=== PATIENT | female | born 1940 | race Caucasian/White ===

== ENCOUNTER 2016-07-01 18:54 | Inpatient (IN) | payer OTHER ==
[~2016-07-01] VITALS: Ht 160 cm; Wt 66.2 kg
--- NOTE | 2016-07-01 19:37 | NUR ---
LABS DRAWN AND SENT, SANTOSH CESPEDES,SST
[2016-07-01 19:43] LABS: ABSOLUTE BASOPHIL COUNT 0 /CUMM (0.0-0.2); ABSOLUTE EOSINOPHIL COUNT 0 /CUMM (0.0-0.7); ABSOLUTE LYMPH COUNT 1.5 /CUMM (1.2-3.4); ABSOLUTE MONOCYTE COUNT 0.3 /CUMM (0.10-0.60); BASOPHIL % 0.1 % (0.0-2.0); EOSINOPHIL % 0.1 % (0-5); HEMATOCRIT 48.3 % (37-47); MEAN CORPUSCULAR HGB 27.8 PG (27.0-31.0); MEAN CORPUSCULAR HGB CONC 32.7 G/DL (33.0-37.0); MEAN CORPUSCULAR VOLUME 85.2 FL (81.0-99.0); MEAN PLATELET VOLUME 9.1 FL (7.4-10.4); PLATELET COUNT 298 /CUMM (130-400); RED BLOOD CELL CT 5.67 /CUMM (4.20-5.40); WHITE BLOOD CELL COUNT 10.9 /CUMM (4.8-10.8)
--- NOTE | 2016-07-01 19:58 | NUR ---
PT TO ED C/O +N/V AND LOW ABDOMINAL PAIN FOR 3 DAYS. WENT TO WALK IN THIS AM, "NO UTI" LAST BM WAS YESTERDAY AND WAS NORMAL. "I CAN'T KEEP ANYTHING DOWN"
--- NOTE | 2016-07-01 21:43 | NUR ---
PT AMBULATORY TO [facility] RM 3 C/C NOTED IN TRIAGE NOTE PT REPORTS 3 DAYS OF LOW ABD PAIN WITH ASSOCIATED N/V. LBM YESTERDAY, WAS NORMAL. REPORTS DECREASED PO LIQUID/SOLID INTAKE AND DECREASED URINARY OUTPUT. HAD URINE SPECIMEN TESTED AT CLINIC [facility] TODAY, THINKS IT WAS NEGATIVE. HAD BLOOD WORK SENT FROM TRIAGE. AWAITING PROVIDER EVAL.
--- NOTE | 2016-07-01 21:49 | NUR ---
EKG ORDERED PER PROTOCOL
--- NOTE | 2016-07-01 21:54 | NUR ---
ALEXSANDER MIRANDA INTO EVALUATE
--- NOTE | 2016-07-01 21:55 | ED GI/GU/ABDOMINAL COMPLAINT ---
History of Present Illness General Chief Complaint: Abdominal Pain/Flank Pain Stated Complaint: ABD PAIN, NAUSEA, VOMITING X 3 DAYS PER PT Source: patient, family Exam Limitations: no limitations Vital Signs & Intake/Output Vital Signs & Intake/Output Vital Signs Date Time Temp Pulse Resp B/P Pulse O2 O2 Flow FiO2 Ox Delivery Rate 07/01 2337 72 16 149/69 97 07/01 2243 99.0 73 20 190/93 98 Room Air 07/01 2144 Room Air Room Air 07/01 1954 98.6 82 18 160/86 Room Air ED Intake and Output 07/02 0000 07/01 1200 Intake Total Output Total Balance Patient 146 lb Weight Allergies Coded Allergies: No Known Drug Allergies (NKDA 07/01/16) Reconcile Medications No Known Home Medications Triage Note: PT TO ED C/O +N/V AND LOW ABDOMINAL PAIN FOR 3 DAYS. WENT TO WALK IN THIS AM, "NO UTI" LAST BM WAS YESTERDAY AND WAS NORMAL. "I CAN'T KEEP ANYTHING DOWN" Triage Nurses Notes Reviewed? yes ? n Is pt currently ? No Onset: Abrupt Duration: day(s): (3), constant, continues in ED Timing: recent history Quality/Severity: moderate, sharpness, severe Location: generalized abdomen Radiation: no radiation Activities at Onset: none No Modifying Factors: none HPI: 75-year-old female comes into emergency room for evaluation of abdominal pain has been going on for the past 3 days. Patient reports that she has associated vomiting. She had a normal bowel movement yesterday but has not had a bowel movement today. She thinks she is passing some intermitting gas. Denies any blood in her stool. Denies any abdominal surgeries. She has no past medical history. Nothing seems to make the symptoms better. Drinking any fluids makes her symptoms worse. Patient reports that any type of liquid she was drinking this afternoon came back up right away. (MOIRA SOTELO) Past History Travel History Traveled to [place] past 21 day No Medical History Any Pertinent Medical History? see below for history Neurological: NONE EENT: NONE Cardiovascular: NONE Respiratory: NONE Gastrointestinal: NONE Hepatic: NONE Renal: NONE Musculoskeletal: NONE Psychiatric: NONE Endocrine: NONE Surgical History Surgical History: non-contributory Psychosocial History What is your primary language Uzbek Tobacco Use: Never used ETOH Use: denies use Illicit Drug Use: denies illicit drug use Family History Hx Contributory? No (MOIRA SOTELO) Review of Systems Review of Systems Constitutional: Reports: no symptoms. EENTM: Reports: no symptoms. Respiratory: Reports: no symptoms. Cardiovascular: Reports: no symptoms. GI: Reports: see HPI. Genitourinary: Reports: no symptoms. Musculoskeletal: Reports: no symptoms. Skin: Reports: no symptoms. Neurological/Psychological: Reports: no symptoms. Hematologic/Endocrine: Reports: no symptoms. Immunologic/Allergic: Reports: no symptoms. All Other Systems: Reviewed and Negative (MOIRA SOTELO) Physical Exam Physical Exam General Appearance: well developed/nourished, no apparent distress, alert Head: atraumatic, normal appearance Eyes: Bilateral: normal appearance, EOMI. Ears, Nose, Throat, Mouth: hearing grossly normal, moist mucous membrane Neck: normal inspection, full range of motion Respiratory: normal breath sounds, no respiratory distress Cardiovascular: regular rate/rhythm Gastrointestinal: soft, tenderness Back: normal inspection Extremities: normal range of motion Neurologic/Psych: awake, alert, oriented x 3, normal gait, normal mood/affect Skin: intact, normal color Core Measures ACS in differential dx? Yes Severe Sepsis Present: No Septic Shock Present: No (MOIRA SOTELO) Progress Differential Diagnosis: appendicitis, biliary colic, bowel obstruction, cholecystitis, diverticulitis, ectopic , esophageal varices, gastritis, hepatitis, hernia, ischemic bowel, kidney stone, ovarian cyst, ovarian torsion, pancreatitis, PUD/GERD, perforated viscous, SBO, threatened AB, UTI/pyelo Plan of Care: Orders Procedure Date/time Status Nothing by Mouth 07/02 B Active [id number] VIEWS 07/02 0700 Active CBC WITHOUT DIFFERENTIAL 07/02 0600 Active BASIC ELECTROLYTES PLUS BUN&CR 07/02 0500 Active Pathway - chart 07/02 0035 Active Patient Data 07/02 0035 Active Code Status 07/02 0035 Active PARTIAL THROMBOPLASTIN TIME 07/02 0019 Active PROTHROMBIN TIME 07/[address] in observation 07/02 UNK Active VTE Mechanical Prophylaxis 07/02 UNK Active Vital Signs 07/02 UNK Active Intake & Output 07/02 UNK Active Activity/Ambulation 07/02 UNK Active Add-on Test (ER Only) 07/01 2154 Active EKG 07/01 2148 Active TROPONIN LEVEL 07/02 1931 Complete LIPASE 07/01 1905 Complete COMPREHENSIVE METABOLIC PANEL 07/01 1905 Complete CBC WITHOUT DIFFERENTIAL 07/01 1905 Complete AMYLASE 07/01 1905 Complete Current Medications Sig/Elizabeth Start time Last Medication Dose Stop Time Status Admin Pantoprazole Sodium 40 MG DAILY 07/02 1000 UNVr (Protonix) Heparin Sodium 5,000 UNIT Q8 07/02 0600 UNVr (Porcine) Morphine Sulfate 2 MG Q3P PRN 07/02 44 UNVr (Morphine) Ondansetron HCl 4 MG Q6P PRN 07/02 44 UNVr (Zofran) Laboratory Tests 07/01/161931: Anion Gap 13, Estimated GFR > 60, BUN/Creatinine Ratio 25.0, Glucose 105 H, Calcium 10.3 H, Total Bilirubin 1.6 H, AST 31, ALT 23, Alkaline Phosphatase 64 , Troponin I < 0.01, Total Protein 8.1, Albumin 4.5, Globulin 3.6, Albumin/ Globulin Ratio 1.3, Amylase 44, Lipase 36, CBC w Diff NO MAN DIFF REQ, RBC 5.67 H, MCV 85.2, MCH 27.8, RDW 15.0 H, MPV 9.1, Gran % 83.0 H, Lymphocytes % 14.2 L, Monocytes % 2.6, Eosinophils % 0.1, Basophils % 0.1, Absolute Granulocytes 9.0 H, Absolute Lymphocytes 1.5, Absolute Monocytes 0.3, Absolute Eosinophils 0 , Absolute Basophils 0, PUBS MCHC 32.7 L Diagnostic Imaging: Viewed by Me: CT Scan. Discussed w/RAD: CT Scan. Radiology Impression: SERVICE DATE: 07/01/16 EXAM TYPE: CAT - CT ABD & PELVIS W IV CONTRAST EXAMINATION: CT ABDOMEN AND PELVIS WITH CONTRAST CLINICAL INFORMATION: Abdominal pain and vomiting. COMPARISON: None. TECHNIQUE: Contiguous axial thin section helical images of the abdomen and pelvis were performed following the administration of 85 mL of intravenous Optiray 320. The data set was reformatted in the coronal and sagittal planes and reviewed on an independent workstation. DLP: 312 mGy-cm. FINDINGS: The visualized lung bases are clear. The visualized portions of the heart are unremarkable. The liver is of normal size and attenuation without focal lesions nor intrahepatic biliary ductal dilation. A normal gallbladder is identified. There is no wall thickening or discernible pericholecystic fluid. The spleen, pancreas, adrenal glands are unremarkable. Both kidneys are of normal size and attenuation without hydronephrosis or nephrolithiasis. Following the administration of IV contrast, prompt symmetric nephrograms are displayed. There is no abdominal free fluid. There is neither mesenteric nor retroperitoneal lymphadenopathy. There is an acute caliber change within the distal small bowel. Proximal to this, there are numerous dilated loops of small bowel. Distal to the area of luminal narrowing, there are several centimeters of bowel with wall thickening and adjacent free fluid. The distal most small bowel is unremarkable as is the colon. The urinary bladder is unremarkable. There is neither pelvic nor inguinal lymphadenopathy. Bone windows: Neither sclerotic nor lytic bone lesions are identified. There is multilevel disc height loss within the lower lumbar spine. IMPRESSION: Distal small bowel obstruction with acute transition, possibly secondary to an adhesion or stricture. Distal to the area of narrowing, there are several centimeters of small bowel with wall thickening. There is adjacent free fluid. The differential diagnosis for this appearance includes inflammatory processes, infectious processes with are without effusions. DICTATED BY: TASHA FELIZ MD DATE/TIME DICTATED:07/01/162318 ROUTEMAN:AKILAH DATE/TIME TRANSCRIBED:2318 Initial ED EKG: normal intervals, normal p-waves, normal QRS complex, normal sinus rhythm, rate (70), nonspecific ST T wave chg (MOIRA SOTELO) Departure Departure Disposition: STILL A PATIENT Condition: Stable Clinical Impression Primary Impression: Small bowel obstruction Referrals: DEEPTI RIOS MD (PCP/Family) Departure Forms: Customer Survey General Discharge Information Prescriptions: Current Visit Scripts No Known Home Medications Observation Note Spoke With: BEATRIZ ANDERS,ARMANI [place] Physician Advisor Notified: REGINO SHEEHAN DO Place Patient In: Non-ED OBS Care Area Rationale for Observation: My rational for observation is as follows . Small bowel obstruction versus enteritis. Patient will be observed overnight. Surgical consultation. Repeat labs. Possibly NG tube. Patient would do poorly as an outpatient. Patient was seen by surgical team. Armani Martin MD will be consulting surgeon. (MOIRA SOTELO) PA/CONCRETE PRODUCTS MACHINE OPERATOR Co-Sign Statement Statement: ED Attending supervision documentation- x I saw and evaluated the patient. I have also reviewed all the pertinent lab results and diagnostic results. I agree with the findings and the plan of care as documented in the PA's/CONCRETE PRODUCTS MACHINE OPERATOR's documentation. [] I have reviewed the ED Record and agree with the PA's/CONCRETE PRODUCTS MACHINE OPERATOR's documentation. [] Additions or exceptions (if any) to the PAs/CONCRETE PRODUCTS MACHINE OPERATOR's note and plan are summarized below: [] (BELLE ANDERS,EVA)
--- NOTE | 2016-07-01 22:38 | NUR ---
IV ACCESS ESTABLISHED, #20 RFA
--- NOTE | 2016-07-01 22:51 | NUR ---
IVF N/S INFUSION INITIATED AND PATIENT MEDICATED WITH ZOFRAN AND MORPHINE PER ORDERS
--- NOTE | 2016-07-01 22:52 | NUR ---
PT TAKEN TO CT SCAN
--- NOTE | 2016-07-01 23:28 | CT SCAN REPORT ---
EXAMINATION: CT ABDOMEN AND PELVIS WITH CONTRAST CLINICAL INFORMATION: Abdominal pain and vomiting. COMPARISON: None. TECHNIQUE: Contiguous axial thin section helical images of the abdomen and pelvis were performed following the administration of 85 mL of intravenous Optiray 320. The data set was reformatted in the coronal and sagittal planes and reviewed on an independent workstation. DLP: 312 mGy-cm. FINDINGS: The visualized lung bases are clear. The visualized portions of the heart are unremarkable. The liver is of normal size and attenuation without focal lesions nor intrahepatic biliary ductal dilation. A normal gallbladder is identified. There is no wall thickening or discernible pericholecystic fluid. The spleen, pancreas, adrenal glands are unremarkable. Both kidneys are of normal size and attenuation without hydronephrosis or nephrolithiasis. Following the administration of IV contrast, prompt symmetric nephrograms are displayed. There is no abdominal free fluid. There is neither mesenteric nor retroperitoneal lymphadenopathy. There is an acute caliber change within the distal small bowel. Proximal to this, there are numerous dilated loops of small bowel. Distal to the area of luminal narrowing, there are several centimeters of bowel with wall thickening and adjacent free fluid. The distal most small bowel is unremarkable as is the colon. The urinary bladder is unremarkable. There is neither pelvic nor inguinal lymphadenopathy. Bone windows: Neither sclerotic nor lytic bone lesions are identified. There is multilevel disc height loss within the lower lumbar spine. IMPRESSION: Distal small bowel obstruction with acute transition, possibly secondary to an adhesion or stricture. Distal to the area of narrowing, there are several centimeters of small bowel with wall thickening. There is adjacent free fluid. The differential diagnosis for this appearance includes inflammatory processes, infectious processes with are without effusions.
--- NOTE | 2016-07-02 00:29 | Admission Core Measures ---
Admission Lab Results I reviewed the following labs: Laboratory Tests 07/02 1931 Chemistry Sodium (137 - 145 mmol/L) 138 Potassium (3.5 - 5.1 mmol/L) 5.4 H Chloride (98 - 107 mmol/L) 101 Carbon Dioxide (22 - 30 mmol/L) 23 Anion Gap (5 - 16) 13 BUN (7 - 17 mg/dL) 20 H Creatinine (0.5 - 1.0 mg/dL) 0.8 Estimated GFR (>60 ml/min) > 60 BUN/Creatinine Ratio (7 - 25 %) 25.0 Glucose (65 - 99 mg/dL) 105 H Calcium (8.4 - 10.2 mg/dL) 10.3 H Total Bilirubin (0.2 - 1.3 mg/dL) 1.6 H AST (14 - 36 U/L) 31 ALT (9 - 52 U/L) 23 Alkaline Phosphatase (<127 U/L) 64 Troponin I (< 0.11 ng/ml) < 0.01 Total Protein (6.3 - 8.2 g/dL) 8.1 Albumin (3.5 - 5.0 g/dL) 4.5 Globulin (1.9 - 4.2 gm/dL) 3.6 Albumin/Globulin Ratio (1.1 - 2.2 %) 1.3 Amylase (30 - 110 U/L) 44 Lipase (23 - 300 U/L) 36 Hematology CBC w Diff NO MAN DIFF REQ WBC (4.8 - 10.8 /CUMM) 10.9 H RBC (4.20 - 5.40 /CUMM) 5.67 H Hgb (12.0 - 16.0 G/DL) 15.8 Hct (37 - 47 %) 48.3 H MCV (81.0 - 99.0 FL) 85.2 MCH (27.0 - 31.0 PG) 27.8 RDW (11.5 - 14.5 %) 15.0 H Plt Count (130 - 400 /CUMM) 298 MPV (7.4 - 10.4 FL) 9.1 Gran % (42.2 - 75.2 %) 83.0 H Lymphocytes % (20.5 - 51.1 %) 14.2 L Monocytes % (1.7 - 9.3 %) 2.6 Eosinophils % (0 - 5 %) 0.1 Basophils % (0.0 - 2.0 %) 0.1 Absolute Granulocytes (1.4 - 6.5 /CUMM) 9.0 H Absolute Lymphocytes (1.2 - 3.4 /CUMM) 1.5 Absolute Monocytes (0.10 - 0.60 /CUMM) 0.3 Absolute Eosinophils (0.0 - 0.7 /CUMM) 0 Absolute Basophils (0.0 - 0.2 /CUMM) 0 PUBS MCHC (33.0 - 37.0 G/DL) 32.7 L Acute Coronary Syndrome Inclusion Criteria ACS Diagnosis No Inpatient Core Measures LDL Reminder: If No, please order W/I first 24hr of stay Congestive Heart Failure Inclusion Criteria CHF Diagnosis No Cerebrovascular accident Inclusion Criteria CVA/TIA Diagnosis No Inpatient Core Measures Bedside Swallow Eval Reminder: If BSE failed, place ST order Antithrombotic Reminder: Order Antithrombotic Medication by end of day 2 Antithrombotic Reminder: Document Reason Antithrombotic Not ordered by end of day 2 AFIB/Flutter Reminder: If Present, add to problem list AFIB/Flutter Reminder: Order Anticoag Medication for pts with AFIB/Flutter Atherosclerosis Reminder: If Present, add to problem list LDL Reminder: If No, please order W/I first 24hr of stay PT Order Reminder: If No, please order Venous thromboembolism Inpatient Core Measures VTE Risk Factors: Age > 40 [facility] prophylaxis d/t No contraindications No VTE Pharm Prophylaxis d/t No contraindications Inclusion Criteria - Per Current guidelines, there needs to be overlap - treatment for the first 5 days of Warfarin therapy. - Parenteral Anticoagulation (IV or SC) needs to be - given along with Warfarin therapy. VTE Diagnosis No VTE Type NONE VTE Confirmed by (Test) NONE Problem List As ranked by this Provider includes Assessment & Plan 1. Small bowel obstruction HOME MEDS Home Med List No Known Home Medications
--- NOTE | 2016-07-02 00:30 | NUR ---
SURG PA HERE TO EVAL.
--- NOTE | 2016-07-02 01:15 | NUR ---
PT GOING TO ROOM 209-1
--- NOTE | 2016-07-02 01:26 | NUR ---
REPORT CALLED TO GARIMA JAUREGUI
[2016-07-02 02:00] VITALS: BP 142/82
[2016-07-02 06:26] VITALS: BP 138/72
--- NOTE | 2016-07-02 07:24 | PN- General Surgery ---
Subjective Subjective: Patient admitted for 23hr obs overnight for c/o new onset lower abdominal pain with nausea and vomitting. Imaging obtained consistent with partial sbo. Patient has been made npo, no ngt placed for no c/o vomitting overnight. Acknowledging mild belching and hiccups that began this am. Denies flatus. Denies chest pain, shortness of breath and difficulty breathing. Objective Vital Signs and I&Os Vital Signs Date Time Temp Pulse Resp B/P Pulse O2 O2 Flow FiO2 Ox Delivery Rate 07/02 06 98.0 62 20 138/72 98 07/02 0200 98.1 70 20 142/82 97 Room Air 07/01 2337 72 16 149/69 97 07/01 2243 99.0 73 20 190/93 98 Room Air 07/01 2144 Room Air Room Air 07/01 1955 98.6 82 18 160/86 Room Air Intake & Output 07/02 0800 07/02 0000 07/01 1600 07/01 0800 07/01 0000 06/30 1600 Intake Total 1200 Output Total 100 Balance 1100 Intake, IV 1200 Output, Urine 100 Patient 146 lb 146 lb Weight Physical Exam: General: Alert and oriented x3, no acute distress Cardiac: RRR, s1s2 Pulmonary: CTA bilaterally Abdomen: Soft distension, tender with palpation in lower abdomen. Hypoactive bowel sounds auscultated in 4 quadrants. Extremities: Neuro/vascular intact. Bialteral calves soft and non-tender. No peripheral edema Assessment/Plan Assessment/Plan This is a 75 year old female, hospital day 1 for partial sbo. No past medical or surgical history. -Strict npo for now -NGT if vomitting or hiccuping -F/U multiview this am -d/w pono Core Measures/Miscellaneous Venous Thromboembolism VTE Risk Factors: Age > 40 VTE Contraindications: No Contraindications VTE Diagnosis: No VTE Type: NONE VTE Confirmed by (Test): NONE Beta Donald Is Beta Donald a Home Med? No Antibiotics Is Patient on Antibiotics? No
[2016-07-02 08:40] LABS: PT 12.4 SEC (9.4-12.5); PTT 28 SEC (25-37)
[2016-07-02 08:46] LABS: ABSOLUTE BASOPHIL COUNT 0 /CUMM (0.0-0.2); ABSOLUTE EOSINOPHIL COUNT 0 /CUMM (0.0-0.7); ABSOLUTE GRANULOCYTE CT 7.2 /CUMM (1.4-6.5); ABSOLUTE MONOCYTE COUNT 0.7 /CUMM (0.10-0.60); BASOPHIL % 0.5 % (0.0-2.0); EOSINOPHIL % 0.2 % (0-5); GRANULOCYTE % 72.3 % (42.2-75.2); HEMATOCRIT 44.1 % (37-47); MEAN CORPUSCULAR HGB 27.9 PG (27.0-31.0); MEAN CORPUSCULAR HGB CONC 32.7 G/DL (33.0-37.0); MEAN CORPUSCULAR VOLUME 85.1 FL (81.0-99.0); MEAN PLATELET VOLUME 9.5 FL (7.4-10.4); PLATELET COUNT 282 /CUMM (130-400); RBC DISTRIBUTION WIDTH 14.8 % (11.5-14.5); RED BLOOD CELL CT 5.18 /CUMM (4.20-5.40); WHITE BLOOD CELL COUNT 9.9 /CUMM (4.8-10.8)
--- NOTE | 2016-07-02 09:10 | NUR ---
PT OFF FLOOR TO XRAY; A;OX3 RA INDPENDENT
--- NOTE | 2016-07-02 09:46 | Cons- Medical ---
General Information and HPI Consulting Request Date of Consult: 07/02/16 Requested By: BEATRIZ ANDERS,ARMANI Fulton Reason for Consult: Medical comanagement Source of Information: patient, old records Exam Limitations: no limitations History of Present Illness: 75-year-old female with no past medical history except for a remote history of appendectomy when she was 12 years old, otherwise patient is a nonsmoker or drinker presenting with complaints of abdominal discomfort for last 2 days associated with minimal nausea and vomiting. CAT scan suggested distal small bowel obstruction secondary to stricture or adhesions. She is currently admitted under surgical service and being managed conservatively. On evaluation she complains of minimal abdominal discomfort and also reports passing gas this morning. Allergies/Medications Allergies: Coded Allergies: No Known Drug Allergies (NKDA 07/01/16) Home Med List: No Known Home Medications Current Medications: Current Medications Sig/Elizabeth Start time Last Medication Dose Route Stop Time Status Admin Dextrose/Sodium 1,000 ML .Q10H 07/02 0030 AC 07/02 Chloride IV 0045 Heparin Sodium 5,000 UNIT Q8 07/02 0600 AC 07/02 (Porcine) SC 0509 Morphine Sulfate 2 MG Q3P PRN 07/02 0045 AC 07/02 IV 0847 Morphine Sulfate 4 MG ONCE ONE 07/01 2245 DC 07/01 IV 07/01 2246 2250 Morphine Sulfate 0 .STK-MED ONE 07/01 2243 DC .ROUTE Ondansetron HCl 4 MG Q6P PRN 07/02 0045 AC 07/02 IV 0509 Ondansetron HCl 0 .STK-MED ONE 07/01 2242 DC .ROUTE Ondansetron HCl 4 MG ONCE ONE 07/01 2200 DC 07/01 IV 07/01 2201 2250 Pantoprazole Sodium 40 MG DAILY 07/02 1000 AC 07/02 IV 0847 Sodium Chloride 1,000 ML ONCE ONE 07/01 2200 DC 07/01 IV 07/02 0439 2249 Review of Systems Review of Systems Constitutional: Denies: no symptoms, see HPI, chills, diaphoresis, fever, malaise, weakness, unexplained weight loss. Cardiovascular: Denies: no symptoms, see HPI, chest pain, edema, orthopena, palpitations, peripheral edema, syncope. Respiratory: Denies: no symptoms, see HPI, cough, hemoptysis, orthopnea, short of breath, sputum production, stridor, wheezing. GI: Reports: abdominal pain. Genitourinary: Denies: no symptoms, see HPI, discharge, dysuria, frequency, hematuria, hesitation, nocturia, pain, urgency. Past History Travel History Traveled to [place] past 21 day No Medical History Blood Transfusion Hx: No Neurological: NONE EENT: NONE Cardiovascular: NONE Respiratory: NONE Gastrointestinal: NONE Hepatic: NONE Renal: NONE Musculoskeletal: NONE Psychiatric: NONE Endocrine: NONE Cancer(s): NONE MANAGER OF DEVELOPMENT/Reproductive: NONE Surgical History Surgical History: non-contributory Psychosocial History Smoking Status: Never Smoked ETOH Use: denies use Illicit Drug Use: denies illicit drug use Exam & Diagnostic Data Last 24 Hrs of Vital Signs/I&O Vital Signs Date Time Temp Pulse Resp B/P Pulse O2 O2 Flow FiO2 Ox Delivery Rate 07/02 0626 98.0 62 20 138/72 98 07/02 0200 98.1 70 20 142/82 97 Room Air 07/01 2337 72 16 149/69 97 07/01 2243 99.0 73 20 190/93 98 Room Air 07/01 2144 Room Air Room Air 07/01 1955 98.6 82 18 160/86 Room Air Intake & Output 07/02 1600 07/02 0800 07/02 0000 Intake Total 1200 Output Total 100 Balance 1100 Intake, IV 1200 Output, Urine 100 Patient 66.224 kg 66.224 kg Weight Physical Exam General Appearance: well developed/nourished, alert, awake, comfortable Respiratory: normal breath sounds Cardiovascular: regular rate/rhythm Gastrointestinal: soft, abnormal bowel sounds Extremities: no edema Last 24 Hrs of Labs/Tejas: Laboratory Tests 07/02/16 0646: Anion Gap 10, Estimated GFR > 60, BUN/Creatinine Ratio 25.0, PT 12.4, INR 1.18, APTT 28, CBC w Diff NO MAN DIFF REQ, RBC 5.18, MCV 85.1, MCH 27.9, RDW 14.8 H, MPV 9.5, Gran % 72.3, Lymphocytes % 19.9 L, Monocytes % 7.1, Eosinophils % 0.2, Basophils % 0.5, Absolute Granulocytes 7.2 H, Absolute Lymphocytes 2.0, Absolute Monocytes 0.7 H, Absolute Eosinophils 0, Absolute Basophils 0, PUBS MCHC 32.7 L 07/01/16 1932: Anion Gap 13, Estimated GFR > 60, BUN/Creatinine Ratio 25.0, Glucose 105 H, Calcium 10.3 H, Total Bilirubin 1.6 H, AST 31, ALT 23, Alkaline Phosphatase 64 , Troponin I < 0.01, Total Protein 8.1, Albumin 4.5, Globulin 3.6, Albumin/ Globulin Ratio 1.3, Amylase 44, Lipase 36, CBC w Diff NO MAN DIFF REQ, RBC 5.67 H, MCV 85.2, MCH 27.8, RDW 15.0 H, MPV 9.1, Gran % 83.0 H, Lymphocytes % 14.2 L, Monocytes % 2.6, Eosinophils % 0.1, Basophils % 0.1, Absolute Granulocytes 9.0 H, Absolute Lymphocytes 1.5, Absolute Monocytes 0.3, Absolute Eosinophils 0 , Absolute Basophils 0, PUBS MCHC 32.7 L Assessment/Plan Assessment/Plan 75-year-old female with no past medical history except for a remote history of appendectomy when she was 12 years old, otherwise patient is a nonsmoker or drinker presenting with complaints of abdominal discomfort for last 2 days associated with minimal nausea and vomiting. CAT scan suggested distal small bowel obstruction secondary to stricture or adhesions. Leukocytosis and hyponatremia have resolved since admission and it appears pain and obstruction is actually improving. She will be managed conservatively. Plan SBO management per surgical team Agree with conservative management Minimize opioid use and mobilize patient DVT prophylaxis Current Medications Sig/Elizabeth Start time Last Medication Dose Route Stop Time Status Admin Dextrose/Sodium 1,000 ML .Q10H 07/02 0030 AC 07/02 Chloride IV 0045 Heparin Sodium 5,000 UNIT Q8 07/02 0600 AC 07/02 (Porcine) SC 0509 Morphine Sulfate 2 MG Q3P PRN 07/02 0045 AC 07/02 IV 0847 Morphine Sulfate 4 MG ONCE ONE 07/015 DC 07/01 IV 07/01 224 2250 Morphine Sulfate 0 .STK-MED ONE 07/01 2242 DC .ROUTE Ondansetron HCl 4 MG Q6P PRN 07/02 0045 AC 07/02 IV 0509 Ondansetron HCl 0 .STK-MED ONE 07/01 2241 DC .ROUTE Ondansetron HCl 4 MG ONCE ONE 07/01 2200 DC 07/01 IV 07/01 2200 2250 Pantoprazole Sodium 40 MG DAILY 07/02 1000 AC 07/02 IV 0847 Sodium Chloride 1,000 ML ONCE ONE 07/01 2200 DC 07/01 IV 07/02 6547 2248 Laboratory Tests 07/02 07/01 0646 1932 Chemistry Sodium (137 - 145 mmol/L) 138 138 Potassium (3.5 - 5.1 mmol/L) 4.1 5.4 H Chloride (98 - 107 mmol/L) 104 101 Carbon Dioxide (22 - 30 mmol/L) 24 23 Anion Gap (5 - 16) 10 13 BUN (7 - 17 mg/dL) 20 H 20 H Creatinine (0.5 - 1.0 mg/dL) 0.8 0.8 Estimated GFR (>60 ml/min) > 60 > 60 BUN/Creatinine Ratio (7 - 25 %) 25.0 25.0 Glucose (65 - 99 mg/dL) 105 H Calcium (8.4 - 10.2 mg/dL) 10.3 H Total Bilirubin (0.2 - 1.3 mg/dL) 1.6 H AST (14 - 36 U/L) 31 ALT (9 - 52 U/L) 23 Alkaline Phosphatase (<127 U/L) 64 Troponin I (< 0.11 ng/ml) < 0.01 Total Protein (6.3 - 8.2 g/dL) 8.1 Albumin (3.5 - 5.0 g/dL) 4.5 Globulin (1.9 - 4.2 gm/dL) 3.6 Albumin/Globulin Ratio (1.1 - 2.2 %) 1.3 Amylase (30 - 110 U/L) 44 Lipase (23 - 300 U/L) 36 Coagulation PT (9.4 - 12.5 SEC) 12.4 INR (0.90 - 1.19) 1.18 APTT (25 - 37 SEC) 28 Hematology CBC w Diff NO MAN DIFF REQ NO MAN DIFF REQ WBC (4.8 - 10.8 /CUMM) 9.9 10.9 H RBC (4.20 - 5.40 /CUMM) 5.18 5.67 H Hgb (12.0 - 16.0 G/DL) 14.4 15.8 Hct (37 - 47 %) 44.1 48.3 H MCV (81.0 - 99.0 FL) 85.1 85.2 MCH (27.0 - 31.0 PG) 27.9 27.8 RDW (11.5 - 14.5 %) 14.8 H 15.0 H Plt Count (130 - 400 /CUMM) 282 298 MPV (7.4 - 10.4 FL) 9.5 9.1 Gran % (42.2 - 75.2 %) 72.3 83.0 H Lymphocytes % (20.5 - 51.1 %) 19.9 L 14.2 L Monocytes % (1.7 - 9.3 %) 7.1 2.6 Eosinophils % (0 - 5 %) 0.2 0.1 Basophils % (0.0 - 2.0 %) 0.5 0.1 Absolute Granulocytes (1.4 - 6.5 /CUMM) 7.2 H 9.0 H Absolute Lymphocytes (1.2 - 3.4 /CUMM) 2.0 1.5 Absolute Monocytes (0.10 - 0.60 /CUMM) 0.7 H 0.3 Absolute Eosinophils (0.0 - 0.7 /CUMM) 0 0 Absolute Basophils (0.0 - 0.2 /CUMM) 0 0 PUBS MCHC (33.0 - 37.0 G/DL) 32.7 L 32.7 L Vital Signs Date Time Temp Pulse Resp B/P Pulse O2 O2 Flow FiO2 Ox Delivery Rate 07/02 0626 98.0 62 20 138/72 98 07/02 0200 98.1 70 20 142/82 97 Room Air 07/01 2337 72 16 149/69 97 07/01 2243 99.0 73 20 190/93 98 Room Air 07/01 2144 Room Air Room Air 07/01 1955 98.6 82 18 160/86 Room Air Consult Acknowledgment - Thank you for your consult request.
--- NOTE | 2016-07-02 12:07 | RADIOLOGY REPORT ---
EXAMINATION: XR ABDOMEN MULTIPLE VIEWS CLINICAL INDICATION: Small bowel obstruction. Follow-up exam. COMPARISON: CT scan of the abdomen and pelvis dated 07/01/2016. TECHNIQUE: Supine and upright views of the abdomen were performed. FINDINGS: There remain a few mildly distended loops of small bowel in the left upper quadrant and pelvis with scattered air-fluid levels on the upright view. Compared to the CT scan from 07/01/2016, the degree of small bowel dilatation has diminished. There is gas seen throughout the colon. No evidence of bowel perforation. Contrast is seen filling the bladder and partially outlining the renal collecting system and the ureters. Midline calcification is seen projected over the mid sacrum, consistent with a uterine fibroid calcification. Multilevel mild vertebral spondylosis is seen in the spine. Mild degenerative changes are present in both hip joints. IMPRESSION: Persistent air distended loops of small bowel in the left upper quadrant and pelvis, improved when compared to the prior exam. Findings are consistent with a partial small bowel obstruction.
[2016-07-02 14:33] VITALS: BP 138/76
--- NOTE | 2016-07-02 17:03 | History & Physical Pre-Op ---
General Information and HPI Source of Information: patient, old records Exam Limitations: no limitations History of Present Illness: CC: abdominal pain HPI: 75-year-old nondiabetic nonsmoker otherwise healthy no medications first time at this institution, came because of 3 days of developing worsening abdominal pain nausea and vomiting but no diarrhea she had a normal bowel movement yesterday, she thought she "had the bug." Since coming to the ER she has not vomited and abdominal pain which is not worse on movement and it doesn't radiate, is improved with IV analgesics. Prior to onset a few days ago she denies any unusual meals high in fiber or chewy candy, or straining or constipation or coughing or unusual lifting, and this is the first time something like this has happened. Otherwise no changes bowel habits, weight or appetite. [facility] No history of GERD, PUD, bleeding problems, heart disease or issues with anesthesia. Family history negative for colorectal cancer diabetes or heart disease. Allergies/Medications Allergies: Coded Allergies: No Known Drug Allergies (NKDA 07/01/16) Home Med list No Known Home Medications Past History Medical History Blood Transfusion Hx: No Neurological: NONE EENT: NONE Cardiovascular: NONE Respiratory: NONE Gastrointestinal: NONE Hepatic: NONE Renal: NONE Musculoskeletal: NONE Psychiatric: NONE Endocrine: NONE Cancer(s): NONE PLATE WORKER/Reproductive: NONE Isolation History: Standard Surgical History Pertinent Surgical History: non-contributory Past Family/Social History Psychosocial History Smoking Status: Never Smoked ETOH Use: denies use Illicit Drug Use: denies illicit drug use Review of Systems Review of Systems: Constitutional: No fever, sweats or weight loss ENMT: No sore throat Cardiovascular: No chest pain, palpitations or leg swelling Respiratory: No shortness of breath, cough, or sputum or dyspnea on exertion GI: No GERD or bleeding per rectum : No dysuria or hematuria Musculoskeletal: No new muscle weakness, bone or joint pain Skin / Breast: No jaundice, rashes or itching Psychiatric: No history of drug or alcohol abuse no depression or anxiety Hematologic / lymphatic system: No problems with excessive bleeding, bruising, or blood clots Exam & Diagnostic Data Last 24 Hrs of Vital Signs/I&O I reviewed Vital Signs Date Time Temp Pulse Resp B/P Pulse O2 O2 Flow FiO2 Ox Delivery Rate 07/02 1433 97.8 74 20 138/76 95 07/02 0626 98.0 62 20 138/72 98 07/02 0200 98.1 70 20 142/82 97 Room Air 07/01 2337 72 16 149/69 97 07/01 2243 99.0 73 20 190/93 98 Room Air 07/01 2144 Room Air Room Air 07/01 1955 98.6 82 18 160/86 Room Air I reviewed Intake & Output 07/02 1600 07/02 0800 07/02 0000 Intake Total 1200 Output Total 100 Balance 1100 Intake, IV 1200 Output, Urine 100 Patient 146 lb 146 lb Weight Physical Exam: Constitutional: pleasant, no acute distress, conversant Eyes: sclera anicteric ENMT: ears and nose atraumatic, moist mucous membranes, good dentition, no lip lesions Neck: Supple, trachea is midline, no cervical or supraclavicular adenopathy and no palpable thyromegaly Cardiovascular: S1, S2, no murmurs, no peripheral edema Respiratory: clear to auscultation with normal respiratory effort and no intercostal retractions GI: abdomen soft, nontender, nondistended, no palpable hepatosplenomegaly Extremities / lymphatics: symmetrically warm, free range of motion no peripheral edema, no cervical, supraclavicular, axillary, or inguinal adenopathy Musculoskeletal: Did not evaluate gait and station, no digital cyanosis, good muscle strength and tone no atrophy, motor grossly 5 out of 5 throughout Skin: no jaundice, no rashes warm, nondiaphoretic, no areas of erythema or induration Psychiatric: mood and affect are appropriate and alert and oriented to person place and time Last 24 Hrs of Labs/Tejas: I reviewed Laboratory Tests 07/02/16 0646: Anion Gap 10, Estimated GFR > 60, BUN/Creatinine Ratio 25.0, PT 12.4, INR 1.18, APTT 28, CBC w Diff NO MAN DIFF REQ, RBC 5.18, MCV 85.1, MCH 27.9, RDW 14.8 H, MPV 9.5, Gran % 72.3, Lymphocytes % 19.9 L, Monocytes % 7.1, Eosinophils % 0.2, Basophils % 0.5, Absolute Granulocytes 7.2 H, Absolute Lymphocytes 2.0, Absolute Monocytes 0.7 H, Absolute Eosinophils 0, Absolute Basophils 0, PUBS MCHC 32.7 L 07/01/16 1932: Anion Gap 13, Estimated GFR > 60, BUN/Creatinine Ratio 25.0, Glucose 105 H, Calcium 10.3 H, Total Bilirubin 1.6 H, AST 31, ALT 23, Alkaline Phosphatase 64 , Troponin I < 0.01, Total Protein 8.1, Albumin 4.5, Globulin 3.6, Albumin/ Globulin Ratio 1.3, Amylase 44, Lipase 36, CBC w Diff NO MAN DIFF REQ, RBC 5.67 H, MCV 85.2, MCH 27.8, RDW 15.0 H, MPV 9.1, Gran % 83.0 H, Lymphocytes % 14.2 L, Monocytes % 2.6, Eosinophils % 0.1, Basophils % 0.1, Absolute Granulocytes 9.0 H, Absolute Lymphocytes 1.5, Absolute Monocytes 0.3, Absolute Eosinophils 0 , Absolute Basophils 0, PUBS MCHC 32.7 L Assessment/Plan Assessment/Plan: I reviewed both today's CT scan and abdominal multiview x-ray on PACS myself comparing them the CT scan shows some twisted mesentery of the small bowel and some thickening but it appears that the bowel makes it through past the transition doesn't appear that tight and on repeat imaging on the multiview this definitely more gas in the transverse colon and the pattern of the dilated small bowel has changed it's a little more scattered. Impression is small bowel obstruction but in her she has had prior abdominal surgery so one has to be suspicious for either congenital band or an occult malignancy the imaging does not show an obvious tumor looks more like a twist related to the mesentery. Also there was no obvious unusual meal high in fiber or chewy food, or even straining. As mentioned, repeat imaging appears slightly better and she has passed a little bit of gas and hasn't had morphine in 6 hours so she slightly improved despite the initial severity. So we will forego urgent surgical retention right now. In the meantime will treat in routine nonoperative fashion with bowel rest, (hold off on NG tube for now), maintenance IV fluids and for the GI losses, monitor uo, electrolytes, vital signs, serial exams, labs , abdominal x-rays. Presently there are no peritoneal signs, if situation plateaus or worsens, especially if abdominal pain worsens in next 6-12 hours, might need urgent surgical intervention in the interest of bowel viability, but as I explained, most of the time it is not needed. As Ranked By This Provider Problem List: 1. Small bowel obstruction
[2016-07-02 22:52] VITALS: BP 128/76
[2016-07-02 23:03] VITALS: BP 148/76
--- NOTE | 2016-07-03 00:44 | NUR ---
ALERT AND ORIENTED X 3. VITAL SIGNS STABLE. DENIES CHEST PAIN. + PULSES ON ROOM AIR. NO DISCOMFORT NOTED. SKIN C/D/I. STEADY GAIT. IV FLUIDS RUNNING PATIENT RESTING AT THIS TIME. WILL CONTINUE TO MONITOR
[2016-07-03 06:29] VITALS: BP 124/68
--- NOTE | 2016-07-03 07:54 | PN- General Surgery ---
See Addendum Subjective Subjective: Patient reports improvement in abdominal discomfort overnight. She has passed flatus but denies bm. She denies belching and hiccupping. She denies nausea and vomitting. She denies chest pain, shortness of breath and difficulty breathing. She has been oob. Objective Vital Signs and I&Os Vital Signs Date Time Temp Pulse Resp B/P Pulse O2 O2 Flow FiO2 Ox Delivery Rate 07/03 628 98.2 71 20 124/68 92 07/02 2303 97.8 88 20 148/76 98 Room Air 07/02 2252 98.2 77 18 128/76 97 Room Air 07/02 1433 97.8 74 20 138/76 95 Intake & Output 07/03 0800 07/03 0000 07/02 1600 07/02 0800 07/02 0000 07/01 1600 Intake Total 800 1200 Output Total 100 Balance 800 1100 Intake, IV 800 1200 Output, Urine 100 Patient 146 lb 146 lb 146 lb Weight Physical Exam: General: Alert and oriented x3, no acute distress Cardiac: RRR, s1s2 Pulmonary: CTA bilaterally Abdomen: Soft, minimal distension, no bowel sounds auscultated on exam Extremities: MOves all extremities, distal sensation intact. Skin warm and well perfused. No peripheral edema. Bilateral calves soft and non-tender Assessment/Plan Assessment/Plan This is a 75 year old female, Hospital day 2 with partial sbo. No medical history. Surgical history significant for appendectomy at age 12 -Continue conservative management for now, keep npo, await improved bowel function -Continue current pain regimen if needed -Protonix for gi ppx -SQ heparin for dvt ppx -Ambulation recommended -Consider f/u multiview -Will discuss with Dr. Martin Core Measures/Miscellaneous Venous Thromboembolism VTE Risk Factors: Age > 40 VTE Contraindications: No Contraindications VTE Diagnosis: No VTE Type: NONE VTE Confirmed by (Test): NONE Beta Donald Is Beta Donald a Home Med? No Antibiotics Is Patient on Antibiotics? No
[2016-07-03 14:40] VITALS: BP 118/70
[2016-07-03 18:20] LABS: ABSOLUTE BASOPHIL COUNT 0 /CUMM (0.0-0.2); ABSOLUTE EOSINOPHIL COUNT 0.2 /CUMM (0.0-0.7); ABSOLUTE GRANULOCYTE CT 2.6 /CUMM (1.4-6.5); ABSOLUTE LYMPH COUNT 1.8 /CUMM (1.2-3.4); ABSOLUTE MONOCYTE COUNT 0.4 /CUMM (0.10-0.60); BASOPHIL % 0.6 % (0.0-2.0); EOSINOPHIL % 3.2 % (0-5); GRANULOCYTE % 52.1 % (42.2-75.2); MEAN CORPUSCULAR HGB CONC 32.8 G/DL (33.0-37.0); MEAN CORPUSCULAR VOLUME 85.2 FL (81.0-99.0); MEAN PLATELET VOLUME 9.6 FL (7.4-10.4); PLATELET COUNT 250 /CUMM (130-400); RED BLOOD CELL CT 4.57 /CUMM (4.20-5.40)
--- NOTE | 2016-07-03 22:24 | NUR ---
07/03/16 2100 PER PT REQUEST SURGICAL ALEXSANDER Butler NOTIFIED OF PT C/O ABDOMEN FEELING GASSY/RUMBLING. PT ALSO HAD SMALL BM X1 IN TOILET. ABDOMEN IS SOFT/+BS HEARD NO NAUSEA/NO VOMITING. WILL CONTINUE TO MONITOR.
[2016-07-03 23:00] VITALS: BP 146/70
[2016-07-04 06:40] VITALS: BP 128/68
--- NOTE | 2016-07-04 07:15 | PN- General Surgery ---
See Addendum Subjective Subjective: The patient was seen this morning. She reports feeling some gas moving through her lower abdomen and is passing flatus this morning. Her last bowel movement was yesterday and she is tolerating a clear liquid diet without nausea. Objective Vital Signs and I&Os Vital Signs Date Time Temp Pulse Resp B/P Pulse O2 O2 Flow FiO2 Ox Delivery Rate 07/04 0640 99.1 68 18 128/68 94 Room Air 07/03 2300 98.7 70 19 146/70 95 07/03 1440 98.5 66 20 118/70 97 Room Air Intake & Output 07/04 0807/04 0000 07/03 1600 07/03 0807/03 0000 07/02 1600 Intake Total 213 343 2575 810 Output Total 600 Balance 406 126 6861 810 Intake, IV 800 400 820 810 Intake, Oral 480 0 Number 0 1 1 1 Bowel Movements Output, Urine 600 Patient 146 lb Weight Physical Exam: Gen.: Alert and in no obvious distress Skin: Warm and dry Abdomen: Soft, mildly distended, nontender, bowel sounds positive. Extremities: Bilateral lower extremities are warm without calf tenderness or significant edema Assessment/Plan Assessment/Plan Assessment: 75-year-old female being treated conservatively for small bowel obstruction. The patient is showing signs of improving bowel function and is tolerating a clear liquid diet without nausea. Plan: Continue clear liquid diet until increased bowel function Decrease IV fluids Out of bed and ambulate GI and DVT prophylaxis Incentive spirometry Strict I's and O's Core Measures/Miscellaneous Venous Thromboembolism VTE Risk Factors: Age > 40 VTE Contraindications: No Contraindications VTE Diagnosis: No VTE Type: NONE VTE Confirmed by (Test): NONE Beta Donald Is Beta Donald a Home Med? No Antibiotics Is Patient on Antibiotics? No
[2016-07-04 08:28] LABS: ABSOLUTE BASOPHIL COUNT 0 /CUMM (0.0-0.2); ABSOLUTE EOSINOPHIL COUNT 0.1 /CUMM (0.0-0.7); ABSOLUTE GRANULOCYTE CT 1.7 /CUMM (1.4-6.5); ABSOLUTE LYMPH COUNT 1.2 /CUMM (1.2-3.4); ABSOLUTE MONOCYTE COUNT 0.5 /CUMM (0.10-0.60); BASOPHIL % 0.5 % (0.0-2.0); EOSINOPHIL % 3.8 % (0-5); GRANULOCYTE % 48.7 % (42.2-75.2); HEMATOCRIT 35.8 % (37-47); MEAN CORPUSCULAR HGB 28.4 PG (27.0-31.0); MEAN CORPUSCULAR HGB CONC 33.6 G/DL (33.0-37.0); MEAN CORPUSCULAR VOLUME 84.5 FL (81.0-99.0); PLATELET COUNT 212 /CUMM (130-400); RBC DISTRIBUTION WIDTH 14.7 % (11.5-14.5); RED BLOOD CELL CT 4.23 /CUMM (4.20-5.40); WHITE BLOOD CELL COUNT 3.4 /CUMM (4.8-10.8)
[2016-07-04 14:28] VITALS: BP 157/81
[2016-07-04 22:31] VITALS: BP 116/70
[2016-07-05 07:08] VITALS: BP 142/72
[2016-07-05 08:06] LABS: ABSOLUTE BASOPHIL COUNT 0 /CUMM (0.0-0.2); ABSOLUTE EOSINOPHIL COUNT 0.1 /CUMM (0.0-0.7); ABSOLUTE GRANULOCYTE CT 2.4 /CUMM (1.4-6.5); ABSOLUTE LYMPH COUNT 1.3 /CUMM (1.2-3.4); ABSOLUTE MONOCYTE COUNT 0.6 /CUMM (0.10-0.60); BASOPHIL % 0.3 % (0.0-2.0); EOSINOPHIL % 1.2 % (0-5); HEMATOCRIT 40.3 % (37-47); MEAN CORPUSCULAR HGB 28.1 PG (27.0-31.0); MEAN CORPUSCULAR HGB CONC 33.2 G/DL (33.0-37.0); MEAN CORPUSCULAR VOLUME 84.7 FL (81.0-99.0); MEAN PLATELET VOLUME 9.4 FL (7.4-10.4); PLATELET COUNT 238 /CUMM (130-400); RBC DISTRIBUTION WIDTH 14.7 % (11.5-14.5); RED BLOOD CELL CT 4.76 /CUMM (4.20-5.40); WHITE BLOOD CELL COUNT 4.4 /CUMM (4.8-10.8)
--- NOTE | 2016-07-05 08:12 | PN- General Surgery ---
See Addendum Subjective Subjective: Patient reporting worsening abdominal pain, bloating, nasuea with what she describes as vomitting phlegm, and belching. She last passed flatus several hours ago. She denies chest pain, shortness of breath and difficulty breathing. She has been voiding without difficulty, but has not had a bm since one day ago. Objective Vital Signs and I&Os Vital Signs Date Time Temp Pulse Resp B/P Pulse O2 O2 Flow FiO2 Ox Delivery Rate 07/05 0708 98.4 84 20 142/72 96 07/04 2231 98.5 82 20 116/70 96 07/04 1428 98.9 72 20 157/81 97 Room Air Intake & Output 07/05 1600 07/05 0807/05 0000 07/04 1600 07/04 0807/04 0000 Intake Total 375 570 3567 800 400 Output Total 500 700 900 600 Balance -100 -60 200 200 400 Intake, IV 400 400 860 800 400 Intake, Oral 240 240 Number 2 2 0 1 Bowel Movements Output, 50 Emesis Output, Urine 500 650 900 600 Physical Exam: General: Alert and oriented x3, no acute distress Cardiac: RRR, s1s2 Pulmonary: Bilateral lung sounds clear to auscultation Abdomen: Softly distended, tenderness with palpation of lower abdomen. No bowel sounds ausculated Extremities; Moves all extremities, distal sensation intact. Motor intact. Skin warm and well perfused. No peripheral edema, bilateral calves soft and nontender Assessment/Plan Assessment/Plan This is a 75 year old female, hospital day 3 with partial small sbo. PMH negative, PSH significant for open appendectomy 63 years ago. Hospital course has included conservative management thus far with some earlier suggestion of improvement, however, symptoms are now worsening. -NPO -Type and Screen to be done this am -Pre-op portable cxr today -Continue iv gi ppx, protonix -Continue morphine prn for pain -Discussed with Dr. Martin -Plan for OR later this afternoon for e-lap if no improvement Core Measures/Miscellaneous Venous Thromboembolism VTE Risk Factors: Age > 40 VTE Contraindications: No Contraindications VTE Diagnosis: No VTE Type: NONE VTE Confirmed by (Test): NONE Beta Donald Is Beta Donald a Home Med? No Antibiotics Is Patient on Antibiotics? No
--- NOTE | 2016-07-05 09:19 | RADIOLOGY REPORT ---
EXAMINATION: XR PORTABLE CHEST CLINICAL INFORMATION: Preoperative evaluation. COMPARISON: None TECHNIQUE: Portable AP view of the chest was obtained. FINDINGS: The cardiomediastinal silhouette is within normal limits. Lung volumes appear somewhat diminished. Right hemidiaphragm slightly elevated age indeterminate. The lungs and pleural spaces appear clear. There is no evidence of pneumothorax or pulmonary edema. Included osseous structures appear largely unremarkable. IMPRESSION: Low lung volumes. No evidence of an acute intrathoracic process.
--- NOTE | 2016-07-05 09:22 | PN- Medicine Consult ---
Assessment/Plan Assessment/Plan Assessment: Distal small bowel obstructionpersisting despite attempts to manage conservatively with nothing by mouth and IV fluids. Plan for surgical exploratory laparotomy. Patient is otherwise stable and she has no contraindications for having the surgery. Plan: Patient is cleared for surgery Continue GI and DVT prophylaxis postoperatively Problem List: 1. Small bowel obstruction Subjective Subjective: Minimal abdominal pain Review of Systems Constitutional: Denies: no symptoms, see HPI, chills, diaphoresis, fever, malaise, weakness, unexplained weight loss. Cardiovascular: Denies: no symptoms, see HPI, chest pain, edema, orthopena, palpitations, peripheral edema, syncope. Respiratory: Denies: no symptoms, see HPI, cough, hemoptysis, orthopnea, short of breath, sputum production, stridor, wheezing. Gastrointestinal: Reports: abdominal pain, distention. Musculoskeletal: Denies: no symptoms, see HPI, back pain, gout, joint pain, joint swelling, muscle pain, muscle stiffness, neck pain. Objective Last 24 Hrs of Vital Signs/I&O Vital Signs Date Time Temp Pulse Resp B/P Pulse O2 O2 Flow FiO2 Ox Delivery Rate 07/05 0708 98.4 84 20 142/72 96 07/04 2231 98.5 82 20 116/70 96 07/04 1428 98.9 72 20 157/81 97 Room Air Intake & Output 07/05 1600 07/05 0800 07/05 0000 Intake Total 400 640 Output Total 500 700 Balance -100 -60 Intake, IV 400 400 Intake, Oral 240 Number 2 Bowel Movements Output, 50 Emesis Output, Urine 500 650 Physical Exam General Appearance: alert, awake, comfortable Cardiovascular: regular rate/rhythm Respiratory: normal breath sounds Abdomen: distention, tenderness Extremities: no edema Current Medications: Current Medications Sig/Elizabeth Start time Last Medication Dose Route Stop Time Status Admin Dextrose/Sodium 1,000 ML .Q20H 07/02 0030 07/05 Chloride IV 0811 Heparin Sodium 5,000 UNIT Q8 07/02 0600 07/02 (Porcine) SC 0509 Magnesium Sulfate 1 GM ONCE ONE 07/04 1015 DC 07/04 Dextrose/Water 100 ML IV 07/04 1414 1426 Morphine Sulfate 2 MG Q3P PRN 07/02 0045 AC 07/05 IV 0824 Ondansetron HCl 4 MG .STK-MED ONE 07/04 2109 DC IM 04/02 2111 Ondansetron HCl 4 MG .STK-MED ONE 07/04 1720 DC IM 07/04 1721 Ondansetron HCl 4 MG Q6P PRN 07/02 0045 AC 07/05 IV 0756 Pantoprazole Sodium 40 MG DAILY 07/02 1000 AC 07/05 IV 0812 Potassium Chloride 10 MEQ Q1H 07/04 1015 DC 07/04 IV 07/04 1116 1426 Results Last 24 Hrs Lab/[place] Results: Laboratory Tests 07/05/16 0608: Anion Gap 12, Estimated GFR > 60, BUN/Creatinine Ratio 10.0, Magnesium 1.8, CBC w Diff NO MAN DIFF REQ, RBC 4.76, MCV 84.7, MCH 28.1, RDW 14.7 H, MPV 9.4, Gran % 55.0, Lymphocytes % 28.7, Monocytes % 14.8 H, Eosinophils % 1.2, Basophils % 0.3, Absolute Granulocytes 2.4, Absolute Lymphocytes 1.3, Absolute Monocytes 0.6 , Absolute Eosinophils 0.1, Absolute Basophils 0, PUBS MCHC 33.2
[2016-07-05 14:33] VITALS: BP 130/73
--- NOTE | 2016-07-05 18:03 | NUR ---
1650 PATIENT OFF FLOOR
[2016-07-05 21:30] VITALS: BP 133/65
--- NOTE | 2016-07-05 22:43 | NUR ---
2129 PATIENT BACK ON FLOOR ALERT AND ORIENTED X 3. VITAL SIGNS STABLE. DENIES CHEST PAIN. + PULSES ON 2L OXYGEN VIA NASAL CANNULA. DSG C/D/I. NGT TP LEFT NARE. BED LOW AND LOCKED. CALL LIGHT WITHIN REACH
--- NOTE | 2016-07-06 00:15 | PN- General Surgery ---
Subjective Subjective: Post op check Awake, alert post op No complaints, Pain well controlled, no nausea Objective Vital Signs and I&Os Vital Signs Date Time Temp Pulse Resp B/P Pulse O2 O2 Flow FiO2 Ox Delivery Rate 07/05 2130 98.1 64 20 133/65 98 Nasal 2.0L Cannula 07/05 1433 98.5 81 20 130/73 94 Room Air 07/05 0708 98.4 84 20 142/72 96 Intake & Output 07/06 0807/06 0000 07/05 1600 07/05 0807/05 0000 07/04 1600 Intake Total 400 456 084 4598 Output Total 600 500 700 900 Balance -200 -100 -60 200 Intake, IV 400 400 400 860 Intake, Oral 0 240 240 Number 2 2 Bowel Movements Output, 50 Emesis Output, Urine 600 500 650 900 Patient 146 lb Weight Physical Exam: VSS, afebrile good urine output NGT: light colored, about 50cc in canister General: alert and oriented times three chest: clear anteriorly bilaterally, RRR Abd: soft, no bs appreciated Wound: dressed, dry Assessment/Plan Assessment/Plan 75 yo female s/p ex lap ALEXIA npo/ngt/ivf abx for one more dose dc kan in am ngt for now await bowel function Core Measures/Miscellaneous Venous Thromboembolism VTE Risk Factors: Age > 40 VTE Contraindications: No Contraindications VTE Diagnosis: No VTE Type: NONE VTE Confirmed by (Test): NONE Beta Donadl Is Beta Donald a Home Med? No Antibiotics Is Patient on Antibiotics? No
[2016-07-06 06:07] VITALS: BP 100/60
--- NOTE | 2016-07-06 07:10 | PN- General Surgery ---
See Addendum Subjective Subjective: The patient was seen this morning postoperatively day #1. She reports that her pain is under adequate control and denies any current nausea. She has yet to pass flatus but feels like she has to. She has no other complaints of current time. Objective Vital Signs and I&Os Vital Signs Date Time Temp Pulse Resp B/P Pulse O2 O2 Flow FiO2 Ox Delivery Rate 07/06 0607 98.5 77 17 100/60 95 Nasal 1.0L Cannula 07/06 0000 Nasal 1.0L Cannula 07/05 2130 98.1 64 20 133/65 98 Nasal 2.0L Cannula 07/05 1433 98.5 81 20 130/73 94 Room Air 07/05 0708 98.4 84 20 142/72 96 Intake & Output 07/06 0800 07/06 0000 07/05 1600 07/05 0800 07/05 0000 07/04 1600 Intake Total 400 400 405 257 4685 Output Total 400 600 500 700 900 Balance 0 -200 -100 -60 200 Intake, IV 400 400 400 400 860 Intake, Oral 0 240 240 Number 2 2 Bowel Movements Output, 50 Emesis Output, 50 Gastric Drainage Output, Urine 350 600 500 650 900 Patient 146 lb Weight Physical Exam: Gen.: Alert and in no obvious distress Skin: Warm and dry Abdomen: Softly distended, appropriate incisional tenderness, bowel sounds positive. Surgical dressing is blood-tinged at the inferior aspect but otherwise intact. Extremities: Bilateral lower extremities are warm without calf tenderness or significant edema. Assessment/Plan Assessment/Plan Assessment: 75-year-old female status post exploratory laparotomy with lysis of adhesions postoperative day #1. The patient is progressing as expected and her pain is under adequate control. Plan: Increase IV fluids to 75 ML's/hr DC Perez catheter Continue NG tube decompression and nothing by mouth until increased bowel function Follow-up morning laboratory studies PRN antiemetics, antipyretics, and pain medication GI and DVT prophylaxis Out of bed and ambulate Incentive spirometry Core Measures/Miscellaneous Venous Thromboembolism VTE Risk Factors: Age > 40 VTE Contraindications: No Contraindications VTE Diagnosis: No VTE Type: NONE VTE Confirmed by (Test): NONE Beta Donald Is Beta Donald a Home Med? No Antibiotics Is Patient on Antibiotics? No
[2016-07-06 08:17] LABS: ABSOLUTE BASOPHIL COUNT 0 /CUMM (0.0-0.2); ABSOLUTE EOSINOPHIL COUNT 0 /CUMM (0.0-0.7); ABSOLUTE LYMPH COUNT 0.8 /CUMM (1.2-3.4); ABSOLUTE MONOCYTE COUNT 0.8 /CUMM (0.10-0.60); BASOPHIL % 0.2 % (0.0-2.0); EOSINOPHIL % 0.1 % (0-5); GRANULOCYTE % 70.7 % (42.2-75.2); HEMATOCRIT 38.5 % (37-47); MEAN CORPUSCULAR HGB 28.1 PG (27.0-31.0); MEAN CORPUSCULAR VOLUME 85.2 FL (81.0-99.0); MEAN PLATELET VOLUME 9.9 FL (7.4-10.4); PLATELET COUNT 229 /CUMM (130-400); RBC DISTRIBUTION WIDTH 14.9 % (11.5-14.5); RED BLOOD CELL CT 4.52 /CUMM (4.20-5.40); WHITE BLOOD CELL COUNT 5.6 /CUMM (4.8-10.8)
--- NOTE | 2016-07-06 09:37 | PN- Medicine Consult ---
Assessment/Plan Assessment/Plan Assessment: Patient is status post day 1 exploratory laparotomy and lysis of adhesions. Viable naya. Uncomplicated surgery currently in recovery with NG tube. Has minimal pain. Plan: Continue current care Continue GI and DVT prophylaxis We'll continue to follow as needed Problem List: 1. Small bowel obstruction Subjective Subjective: Patient reports minimal pain. Review of Systems Constitutional: Denies: no symptoms, see HPI, chills, diaphoresis, fever, malaise, weakness, unexplained weight loss. Cardiovascular: Denies: no symptoms, see HPI, chest pain, edema, orthopena, palpitations, peripheral edema, syncope. Respiratory: Denies: no symptoms, see HPI, cough, hemoptysis, orthopnea, short of breath, sputum production, stridor, wheezing. Gastrointestinal: Reports: abdominal pain. Musculoskeletal: Denies: no symptoms, see HPI, back pain, gout, joint pain, joint swelling, muscle pain, muscle stiffness, neck pain. Objective Last 24 Hrs of Vital Signs/I&O Vital Signs Date Time Temp Pulse Resp B/P Pulse O2 O2 Flow FiO2 Ox Delivery Rate 07/06 0607 98.5 77 17 100/60 95 Nasal 1.0L Cannula 07/06 0000 Nasal 1.0L Cannula 07/05 2130 98.1 64 20 133/65 98 Nasal 2.0L Cannula 07/05 1433 98.5 81 20 130/73 94 Room Air Intake & Output 07/06 1600 07/06 0800 07/06 0000 Intake Total 400 Output Total 400 Balance 0 Intake, IV 400 Output, 50 Gastric Drainage Output, Urine 350 Physical Exam General Appearance: awake, comfortable Cardiovascular: regular rate/rhythm Respiratory: lungs clear Abdomen: soft, distention Extremities: no edema Current Medications: Current Medications Sig/Elizabeth Start time Last Medication Dose Route Stop Time Status Admin Acetaminophen 1,000 MG .STK-MED ONE 07/05 1720 DC IV 07/05 1721 Ampicillin Sodium/ 3,000 MG ONCE ONE 07/06 0000 DC 07/05 Sulbactam Sodium IV 07/06 0029 2350 Sodium Chloride 100 ML Dextrose/Sodium 1,000 ML .Q20H 07/02 0030 DC 07/05 Chloride IV 0811 Fentanyl Citrate 250 MCG .STK-MED ONE 07/05 1720 DC IM 07/05 1721 Heparin Sodium 5,000 UNIT Q8 07/05 2200 AC 07/06 (Porcine) SC 0525 Heparin Sodium 5,000 UNIT Q8 07/02 0600 DC 07/02 (Porcine) SC 0509 Hydromorphone HCl 2 MG .STK-MED ONE 07/06 2051 DC IM 07/05 2052 Hydromorphone HCl 2 MG .STK-MED ONE 07/06 1915 DC IM 07/05 1916 Meperidine HCl 50 MG .STK-MED ONE 07/05 2013 DC IM 07/05 2014 Midazolam HCl 2 MG .STK-MED ONE 07/05 1720 DC IM 07/05 172 Morphine Sulfate 2 MG Q3P PRN 07/05 2029 AC 07/06 IV 0533 Morphine Sulfate 2 MG Q3P PRN 07/02 0045 DC 07/05 IV 1515 Ondansetron HCl 4 MG Q6P PRN 07/05 2030 AC IV Ondansetron HCl 4 MG Q6P PRN 07/02 0045 DC 07/05 IV 1528 Pantoprazole Sodium 40 MG DAILY 07/06 1000 AC IV Pantoprazole Sodium 40 MG DAILY 07/02 1000 DC 07/05 IV 0812 Patient Medication 1 ED .STK-MED ONE 07/05 1347 DC Teaching ED 07/05 1348 Potassium Chloride 20 MEQ Q20H 07/06 1015 DC Dextrose/Sodium 1,000 ML IV Chloride Potassium Chloride 20 MEQ Q13H 07/06 0715 AC Dextrose/Sodium 1,000 ML IV Chloride Potassium Chloride 10 MEQ Q1H 07/05 1415 DC 07/05 IV 07/05 1516 1633 Potassium Chloride 20 MEQ Q20H 07/05 1415 DC 07/05 Dextrose/Sodium 1,000 ML IV 07/06 1014 2350 Chloride Scopolamine HBr 1 PAT .STK-MED ONE 07/05 1755 [facility] 07/05 1756 Results Last 24 Hrs Lab/[place] Results: Laboratory Tests 07/06/16 0605: Anion Gap 3 L, Estimated GFR > 60, BUN/Creatinine Ratio 15.7, Magnesium 1.6, CBC w Diff NO MAN DIFF REQ, RBC 4.52, MCV 85.2, MCH 28.1, RDW 14.9 H, MPV 9.9, Gran % 70.7, Lymphocytes % 14.7 L, Monocytes % 14.3 H, Eosinophils % 0.1, Basophils % 0.2, Absolute Granulocytes 4.0, Absolute Lymphocytes 0.8 L, Absolute Monocytes 0.8 H, Absolute Eosinophils 0, Absolute Basophils 0, PUBS MCHC 33.0 Microbiology 07/05 1840 URINE OR: Urine Culture - RES
[2016-07-06 14:06] VITALS: BP 116/72
--- NOTE | 2016-07-06 16:45 | Operative Report ---
Operative/Inv Procedure Report Surgery Date: 07/05/16 Name of Procedure: Laparotomy lysis of adhesions Pre-Operative Diagnosis: Small bowel obstruction Post-Operative Diagnosis: Same Estimated Blood Loss: scant Surgeon/Grizzly Worker: BEATRIZ ANDERS,ARMANI BELTRE Anesthesia: general endotracheal tube Operative/Procedure Note Note: Patient was placed on the OR table in the supine position. After successful induction of general anesthesia the patient's abdomen was prepped clipped and draped in the usual sterile fashion. A lower midline incision was planned infraumbilical about 10 cm long in the midline incision was made with a 10 blade and deepened with cautery through the subcutaneous layer of fascia between the muscles was identified and incised vertically them he came to the peritoneum there was copious amount of clear yellow fluid no odor and we found a constricting band adhesion between the omentum and the small bowel 2 loops were involved, the distal terminal ileum and also the proximal ileum some of these adhesions also involved the ovary which both appeared grossly normal visually and by palpation most of the adhesions were related to the omentum in the right lower quadrant and the deep pelvis on that side that creases on the bowel where the obstruction was were not necrotic or full thickness and they recovered when we released them. After checking the position of the NG tube we irrigated aspirated ran the bowel a few times full length from ligament of Treitz to the cecum we placed the omentum back on top and closed the fascia in layers using running 0 Maxon first then interrupted 3-0 Vicryl subdermally and then walter for skin followed by an island dressing. EBL minimal Lap and sponge and sponge counts: correct Wound expectancy: Clean IV fluids: crystalloid Complications: none Patient tolerated the procedure well was awakened and extubated and returned to the recovery room in satisfactory condition.
[2016-07-06 21:59] VITALS: BP 124/74
[2016-07-07 06:22] VITALS: BP 140/80
--- NOTE | 2016-07-07 06:49 | PN- General Surgery ---
See Addendum Subjective Subjective: The patient was seen this morning postoperatively day #2. She reports that her pain is under adequate control and she is without nausea. She feels a rumbling in her stomach but has yet to pass flatus or have a bowel movement. Objective Vital Signs and I&Os Vital Signs Date Time Temp Pulse Resp B/P Pulse O2 O2 Flow FiO2 Ox Delivery Rate 07/07 621 99.8 84 20 140/80 92 Room Air 07/06 2159 98.5 90 20 124/74 94 07/06 1406 99.1 86 18 116/72 95 Room Air Intake & Output 07/07 0800 07/07 0000 / 1600 07/06 0800 07/06 0000 07/05 1600 Intake Total 600 600 600 400 400 Output Total 400 215 150 400 600 Balance 200 385 450 0 -200 Intake, IV 600 600 600 400 400 Intake, Oral 0 0 0 Output, 65 50 Gastric Drainage Output, Urine 400 150 150 350 600 Patient 146 lb Weight Physical Exam: Gen.: Alert and in no obvious distress Skin: Warm and dry Abdomen: Softly distended, appropriate incisional tenderness, bowel sounds positive. Surgical dressing was removed and the incision is clean, dry, and intact without signs of infection. Surgical clips are intact. Extremities: Bilateral lower extremities are warm without calf tenderness or significant edema. Assessment/Plan Assessment/Plan Assessment: 75-year-old female status post exploratory laparotomy with lysis of adhesions postoperative day #2. The patient is making slow progress and her bowel function has had to return. Plan: Continue nothing by mouth and NG tube decompression Gentle hydration Out of bed and ambulate Follow-up morning labs GI and DVT prophylaxis Continue current pain regiment Core Measures/Miscellaneous Venous Thromboembolism VTE Risk Factors: Age > 40 VTE Contraindications: No Contraindications VTE Diagnosis: No VTE Type: NONE VTE Confirmed by (Test): NONE Beta Donald Is Beta Donald a Home Med? No Antibiotics Is Patient on Antibiotics? No
[2016-07-07 11:39] LABS: ABSOLUTE BASOPHIL COUNT 0 /CUMM (0.0-0.2); ABSOLUTE EOSINOPHIL COUNT 0.1 /CUMM (0.0-0.7); ABSOLUTE GRANULOCYTE CT 3.8 /CUMM (1.4-6.5); ABSOLUTE MONOCYTE COUNT 0.8 /CUMM (0.10-0.60); BASOPHIL % 0.4 % (0.0-2.0); EOSINOPHIL % 1.1 % (0-5); GRANULOCYTE % 66.6 % (42.2-75.2); HEMATOCRIT 39.5 % (37-47); MEAN CORPUSCULAR HGB 28.3 PG (27.0-31.0); MEAN CORPUSCULAR HGB CONC 33.6 G/DL (33.0-37.0); MEAN CORPUSCULAR VOLUME 84.3 FL (81.0-99.0); MEAN PLATELET VOLUME 9.3 FL (7.4-10.4); PLATELET COUNT 247 /CUMM (130-400); RBC DISTRIBUTION WIDTH 14.9 % (11.5-14.5); RED BLOOD CELL CT 4.68 /CUMM (4.20-5.40); WHITE BLOOD CELL COUNT 5.8 /CUMM (4.8-10.8)
[2016-07-07 14:34] VITALS: BP 132/78
[2016-07-07 21:44] VITALS: BP 124/66
[2016-07-08 06:53] VITALS: BP 140/70
--- NOTE | 2016-07-08 06:59 | PN- General Surgery ---
See Addendum Subjective Subjective: Pt. states she had relatively good night sleep.ambulated yestaerday in hallway Complains on sore throat Denies passing flatus. Objective Vital Signs and I&Os Vital Signs Date Time Temp Pulse Resp B/P Pulse O2 O2 Flow FiO2 Ox Delivery Rate 07/08 0653 98.1 81 18 140/70 94 Room Air 07/07 2144 97.9 88 20 124/66 93 Room Air 07/07 1434 99.1 81 20 132/78 94 07/07 0940 Room Air Room Air Intake & Output 07/08 0807/08 0000 07/07 1600 07/07 0807/07 0000 07/06 1600 Intake Total 300 600 600 600 600 Output Total 380 450 400 215 150 Balance -80 150 200 385 450 Intake, IV 300 600 600 600 600 Intake, Oral 0 0 0 0 Number 0 Bowel Movements Output, 130 100 65 Gastric Drainage Output, Urine 250 350 400 150 150 Alert, oriented , appropriate without distress. Lungs clear bilat. Rhythm regular Abdomen moderately softly distended , appropriately tender at incision.Chloride intact. She has mild pink erythrema along staple line , more diffuse at lower pole with mild bruising. There is no drainage Erythrema marked gently with pen Extremities without peripheral edema. Assessment/Plan Assessment/Plan s/p Expl. lap/ ALEXIA for SBO POD #3 She is hemodynamically stable. Abdomen is fairly distended .There is no evidence of bowel fxn yet, although NGT output is relatively low, non bilious. Would keep NGT / IVF till passing flatus.Continue ambulation. Incisional eryhrema without drainage or fever.Need to monitor wound( erythrema marked).Will check WBC today.Will discuss with surgeon regarding antibiotic. Pain well controlled with IV Tylenol, she uses b\narcotics in minimal amounts. Sore throat , likely related to NGT, will add chloraseptic spray. Core Measures/Miscellaneous Venous Thromboembolism VTE Risk Factors: Age > 40 VTE Contraindications: No Contraindications VTE Diagnosis: No VTE Type: NONE VTE Confirmed by (Test): NONE Beta Donald Is Beta Donald a Home Med? No Antibiotics Is Patient on Antibiotics? No
[2016-07-08 08:44] LABS: ABSOLUTE BASOPHIL COUNT 0 /CUMM (0.0-0.2); ABSOLUTE EOSINOPHIL COUNT 0.1 /CUMM (0.0-0.7); ABSOLUTE GRANULOCYTE CT 3.9 /CUMM (1.4-6.5); ABSOLUTE LYMPH COUNT 1.3 /CUMM (1.2-3.4); BASOPHIL % 0.5 % (0.0-2.0); EOSINOPHIL % 1.7 % (0-5); GRANULOCYTE % 61.3 % (42.2-75.2); HEMATOCRIT 36.6 % (37-47); MEAN CORPUSCULAR HGB CONC 33.3 G/DL (33.0-37.0); MEAN CORPUSCULAR VOLUME 84.1 FL (81.0-99.0); MEAN PLATELET VOLUME 9.5 FL (7.4-10.4); PLATELET COUNT 254 /CUMM (130-400); RBC DISTRIBUTION WIDTH 14.6 % (11.5-14.5); RED BLOOD CELL CT 4.35 /CUMM (4.20-5.40); WHITE BLOOD CELL COUNT 6.4 /CUMM (4.8-10.8)
[2016-07-08 14:18] VITALS: BP 151/89
[2016-07-08 21:41] VITALS: BP 138/78
[2016-07-09 06:45] VITALS: BP 134/74
--- NOTE | 2016-07-09 09:15 | NUR ---
NURSING NOTE: PT HAD 2 SMALL BMS THIS AM, +FLATUS, HYPO BS NOTED. PT DENIES NAUSEA. NGT CLAMPT AT THIS TIME; WILL CLAMPT FOR 4 HRS PER DANYELLE BELTRE. WILL ATTACH TO SUCTION AT 1300-1400PM. CONT TO MONITOR. PT TO CALL IF NAUSEOUS.
--- NOTE | 2016-07-09 09:24 | PN- General Surgery ---
See Addendum Subjective Subjective: No acute overnight events reported. Patient had small bowel movement this am. Denies nausea and vomitting. Denies chest pain, shortness of breath and difficulty breathing. Objective Vital Signs and I&Os Vital Signs Date Time Temp Pulse Resp B/P Pulse O2 O2 Flow FiO2 Ox Delivery Rate 07/09 0645 98.0 91 18 134/74 93 Room Air 07/08 2141 87.0 87 18 138/78 97 07/08 1418 98.5 77 20 151/89 95 Room Air Intake & Output 07/09 1600 07/09 0807/09 0000 07/08 1600 07/08 0000 Intake Total 600 100 600 300 Output Total 900 550 400 450 580 Balance -300 -550 -300 150 -280 Intake, IV 600 600 300 Intake, Oral 0 0 Intake, Other 100 Number 2 0 0 Bowel Movements Output, 200 550 150 130 Gastric Drainage Output, Urine 700 400 300 450 Physical Exam: General: Alert and oriented x3, no acute distress Cardiac: RRR, s1s2 Pulmonary: C T A bilaterally Abdomen: Softly distended, mild nhung-incisional tenderness, some mild erythema along incsion appears to be associated with hematoma, no drainage, ngt with 100 cc of non-bilious drainage in the past 3 hours Extremities Moves all extremities, distal sensation intact. Skin warm and well perfused. No peripheral edema. Bialteral calves soft and non-tender. Assessment/Plan Assessment/Plan This is a 75 year old female, POD 4, s/p e-lap and patricia for sbo -Passing flatus, small bm. Clamp ngt now, will consider d/c this afternoon and start clears if no nausea/vomitting. Abdomen remains somewhat distended presently. Anticipate more improved bowel function prior to d/c ngt. -OOB, ambulation encouraged -Continue current pain regimen -Continue ALPS and sub Q heparin for dvt ppx -Continue to monitor incision, does not appear infected at present. -Will d/w Dr. Hobbs Core Measures/Miscellaneous Venous Thromboembolism VTE Risk Factors: Age > 40 VTE Contraindications: No Contraindications VTE Diagnosis: No VTE Type: NONE VTE Confirmed by (Test): NONE Beta Donald Is Beta Donald a Home Med? No Antibiotics Is Patient on Antibiotics? No
[2016-07-09 14:11] VITALS: BP 118/70
[2016-07-09 23:25] VITALS: BP 149/95
[2016-07-10 07:09] VITALS: BP 129/72
--- NOTE | 2016-07-10 07:45 | PN- General Surgery ---
See Addendum Subjective Subjective: Patient feeling well, no pain, no nausea, having 3 or 4 loose bowel movements since 4 AM this morning. She is hungry. She is in good spirits Objective Vital Signs and I&Os Vital Signs Date Time Temp Pulse Resp B/P Pulse O2 O2 Flow FiO2 Ox Delivery Rate 07/10 708 98.3 75 18 129/72 94 Room Air 07/09 2325 98.5 83 20 149/95 96 Room Air 07/09 1411 98.7 80 20 118/70 96 Room Air Intake & Output 07/10 0807/10 0000 07/09 1600 07/09 0807/09 0000 07/08 1600 Intake Total 720 1200 1050 600 100 Output Total 800 900 700 900 550 400 Balance -80 300 350 -300 -550 -300 Intake, IV 600 600 600 600 Intake, Oral 120 600 450 Intake, Other 100 Number 4 2 2 Bowel Movements Output, 100 200 550 Gastric Drainage Output, Urine 800 900 600 700 400 Physical Exam: Well-developed well-nourished no apparent distress. HEENT: Atraumatic, extraocular motion intact Neck: Supple, no lymphadenopathy Heart: Regular rate and rhythm no murmur Respiratory: No respiratory distress clear to auscultation bilateral Abdomen: Soft, mildly distended, hypoactive bowel sounds. Incision clean dry and intact with minimal left-sided lateral erythema. No drainage, no significant increased tenderness in this area. Extremities: No edema, calves nontender Neuro: Alert and oriented x3 Psych: Mood affect normal, normal memory normal judgment. Skin: Warm and dry, no rash on exposed skin Results Last 48 Hours of Labs: Laboratory Tests 07/08 0754 Hematology CBC w Diff NO MAN DIFF REQ WBC (4.8 - 10.8 /CUMM) 6.4 RBC (4.20 - 5.40 /CUMM) 4.35 Hgb (12.0 - 16.0 G/DL) 12.2 Hct (37 - 47 %) 36.6 L MCV (81.0 - 99.0 FL) 84.1 MCH (27.0 - 31.0 PG) 28.0 RDW (11.5 - 14.5 %) 14.6 H Plt Count (130 - 400 /CUMM) 254 MPV (7.4 - 10.4 FL) 9.5 Gran % (42.2 - 75.2 %) 61.3 Lymphocytes % (20.5 - 51.1 %) 21.0 Monocytes % (1.7 - 9.3 %) 15.5 H Eosinophils % (0 - 5 %) 1.7 Basophils % (0.0 - 2.0 %) 0.5 Absolute Granulocytes (1.4 - 6.5 /CUMM) 3.9 Absolute Lymphocytes (1.2 - 3.4 /CUMM) 1.3 Absolute Monocytes (0.10 - 0.60 /CUMM) 1.0 H Absolute Eosinophils (0.0 - 0.7 /CUMM) 0.1 Absolute Basophils (0.0 - 0.2 /CUMM) 0 PUBS MCHC (33.0 - 37.0 G/DL) 33.3 Assessment/Plan Assessment/Plan This is a 75 year old female, POD 5, s/p ex-lap and patricia for sbo -Passing flatus, 3 small loose bm this morning. Tolerating clearS, no nausea, no pain, no vomiting, we will advance diet to fulls -DC IV fluids -OOB, ambulation encouraged -Continue current pain regimen -Continue ALPS and sub Q heparin for dvt ppx -Continue to monitor incision, erythema improving. Core Measures/Miscellaneous Venous Thromboembolism VTE Risk Factors: Age > 40 VTE Contraindications: No Contraindications VTE Diagnosis: No VTE Type: NONE VTE Confirmed by (Test): NONE Beta Donald Is Beta Donald a Home Med? No Antibiotics Is Patient on Antibiotics? No
[2016-07-10 14:26] VITALS: BP 137/79
[2016-07-10 22:19] VITALS: BP 150/80
[2016-07-11 06:56] VITALS: BP 136/80
--- NOTE | 2016-07-11 07:49 | Patient Discharge Instructions ---
Discharge Instructions General Discharge Information You were seen/treated for: small bowel obstruction You had these procedures: lysis of adhesions Watch for these problems: temp>101, increased redness or drainage of wounds, increased nausea or abdominal pain Do not soak the wound: Yes No bath, but you may shower: Yes Other wound care: Clean, dry dressing change daily Diet Recommended Diet: Low Residue Activity Activity Self Limited: Yes Pounds, do NOT lift more than: 10 Acute Coronary Syndrome Inclusion Criteria At DC or during hospital stay patient has or had the following: ACS DIAGNOSIS No Discharge Core Measures Meds if any: Prescribed or Continued at Discharge Meds if any: NOT Prescribed or Continued at Discharge Congestive Heart Failure Inclusion Criteria At DC or during hospital stay patient has or had the following: CHF DIAGNOSIS No Discharge Core Measures Meds if any: Prescribed or Continued at Discharge Meds if any: NOT Prescribed or Continued at Discharge Cerebrovascular accident Inclusion Criteria At DC or during hospital stay patient has or had the following: CVA/TIA Diagnosis No Discharge Core Measures Meds if any: Prescribed or Continued at Discharge Meds if any: NOT Prescribed or Continued at Discharge Venous thromboembolism Inclusion Criteria VTE Diagnosis No VTE Type NONE VTE Confirmed by (Test) NONE Discharge Core Measures - Per Current guidelines, there needs to be overlap - treatment for the first 5 days of Warfarin therapy. - If discharged on Warfarin prior to 5 days of - overlap therapy, the patient will need to be - assessed for post discharge needs including - *Post discharge parental anticoagulation - *Warfarin and/or parental anticoagulation education - *Follow up date to check INR post discharge At least 5 days overlap therapy as Inpatient No Meds if any: Prescribed or Continued at Discharge Note: Overlap Therapy is Warfarin and Anticoagulant Meds if any: NOT Prescribed or Continued at Discharge
--- NOTE | 2016-07-11 08:06 | PN- General Surgery ---
Subjective Subjective: OOB, eating breakfast Feels good Tolerating a regular diet +BM without pain Has not taken pain meds for 3 days Ready to go home Objective Vital Signs and I&Os Vital Signs Date Time Temp Pulse Resp B/P Pulse O2 O2 Flow FiO2 Ox Delivery Rate 07/11 0656 98.4 84 18 136/80 96 Room Air 07/10 2219 98.3 86 19 150/80 95 Room Air 07/10 1426 98.1 88 18 137/79 97 Room Air Intake & Output 07/11 1600 07/11 0000 07/10 1600 07/10 0000 Intake Total 900 057 848 8892 Output Total 500 550 800 900 Balance 400 225 -80 300 Intake, IV 75 600 600 Intake, Oral 900 700 120 600 Number 0 4 2 Bowel Movements Output, Urine 500 550 800 900 Physical Exam: afebrile, vss General: alert and oriented times three Chest: clear anteriorly bilaterally, RRR Abd: soft, nondistended, nontender, good bs Ext: warm, no edema Wound: walter intact, no drainage Assessment/Plan Assessment/Plan 75 yo female s/p sbo/patricia pod 6 dc home fu with DR Martin All questions answered No new prescriptions Core Measures/Miscellaneous Venous Thromboembolism VTE Risk Factors: Age > 40 VTE Contraindications: No Contraindications VTE Diagnosis: No VTE Type: NONE VTE Confirmed by (Test): NONE Beta Donald Is Beta Donald a Home Med? No Antibiotics Is Patient on Antibiotics? No
--- NOTE | 2016-07-11 09:09 | Surgical Discharge Summary ---
Visit Information Visit Dates Admission Date: 07/02/16 Discharge Date: 07/11/16 History of Present Illness Chief Complaint: abdominal pain Medical History Blood Transfusion Hx: No Neurological: NONE EENT: NONE Cardiovascular: NONE Respiratory: NONE Gastrointestinal: NONE Hepatic: NONE Renal: NONE Musculoskeletal: NONE Psychiatric: NONE Endocrine: NONE Blood Disorders: NONE Cancer(s): NONE [employer]/Reproductive: NONE History of MRSA: No History of VRE: No History of CDIFF: No Isolation History: Standard Surgical History Pertinent Surgical History: appendectomy, lysis of adhesions 06/18 Psychosocial History Where Do You Live? Home Who Do You Live With? Spouse Services at Home: None What is Your Primary Language? 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 She had quick return of bowel function after ng decompression. A diet was initiated. Her symptoms quickly recurred. She was then taken to surgery for lysis of adhesions. Post op she had an ileus. It resolved and she was started on diet. Allergies: Coded Allergies: No Known Drug Allergies (NKDA 07/01/16) Significant Procedures: laparotomy with lysis of adhesions. Disposition Summary Disposition Principal Diagnosis: Intestinal obstruction Additional Diagnosis: none Discharge Disposition: home or self care Discharge Instructions General Discharge Information Code Status: Full Code Patient's Diet: regular low fiber Patient's Activity: no lifting Follow-Up Instructions/Appts: one week for staple removal Copies To: DEEPTI RIOS MD
== END 2016-07-11 08:50 | DRG 336 ==
LOC: ENRESERVTM → ENRESERVDT → ERH 18:54 → ERHI 07-02 00:35 → 2NB 07-02 00:35 → ENPENDDIS 07-02 16:11 → 2NB 07-02 16:47
PROVIDERS: Nurse Practitioner; Physician Assistant; Physician Assistant Medical; Physician Assistant Surgical; ADMIT Surgery
PROC: 0DN80ZZ Release Small Intestine, Open Approach (ICD-10-PCS; principal; 2016-07-05)
DX: K56.5 Intestinal adhesions [bands] with obstruction (postinfection) (principal); E87.1 Hypo-osmolality and hyponatremia; K56.7 Ileus, unspecified
CPT/HCPCS: 2NAP; 2NBP; 2NSBP; 6040; 36415; 74020; 74177; 82436; 87086; 93005; 93010; 96374; 96375; G0378; J0131; J1644; J2405; J7042